=== PATIENT | male | born 1990 | race Two or more races ===

== ENCOUNTER 2020-04-18 04:27 | Day surgery (SDC) | payer OTHER ==
[2020-04-14 16:30] VITALS: BMI 26.4
[2020-04-18] MEDS ORDERED: SCOPOLAMINE HYDROBROMIDE 1 PATCH PATCH.TD72 ONE (12:56)
[2020-04-18] MEDS ORDERED: SCOPOLAMINE HYDROBROMIDE 1 PATCH PATCH.TD72 TD ONE (12:57)
[2020-04-18] MEDS ORDERED: PROPOFOL 20 ML ONE (13:21)
[2020-04-18] MEDS ORDERED: MIDAZOLAM HCL 2 MG/2 ML SINGLE DOSE VIAL ONE (13:22)
[2020-04-18 13:56] VITALS: TEMP 97.3
[2020-04-18 14:39] VITALS: BP 136/91; PULSE 51
== END 2020-04-18 14:45 | disposition home or self-care (01) ==
LOC: JASU-SURG 04:27
PROVIDERS: ATTEND Urology
PROC: 0TF3XZZ Fragmentation in Right Kidney Pelvis, External Approach (ICD-10-PCS; principal; 2020-04-18 12:00)
DX: N20.0 Calculus of kidney (principal)